=== PATIENT | female | born 1985 | race American Indian/Alaskan Native ===

== ENCOUNTER 2018-01-15 17:16 | Inpatient (IN) | payer OTHER ==
[2018-01-15] MEDS ORDERED: NACL 0.9% 1000 ML 1,000 ML IV ONE (20:19)
[2018-01-15 20:35] LABS: Basophils % (Auto) 0.2 % (0.0-1.8); Eosinophils % (Auto) 0.1 % (0.0-4.3); Lymphocytes # (Auto) 0.5 K/mm3 (1.2-5.4); Lymphocytes % (Auto) 7.3 % (13.4-35.0); Mean Corpuscular HGB Conc 36 % (30-34); Mean Corpuscular Hemoglobin 31 pg (28-32); Mean Corpuscular Volume 86 fl (79-97); Monocytes # (Auto) 0.6 K/mm3 (0.0-0.8); Monocytes % (Auto) 10.2 % (0.0-7.3); Platelet Count 182 K/mm3 (140-440); Red Blood Count 3.61 M/mm3 (3.65-5.03); Red Cell Distribution Width 14.3 % (13.2-15.2)
[2018-01-15 21:11] LABS: Alanine Aminotransferase 8 units/L (7-56); Albumin 4.3 g/dL (3.9-5); BUN/Creatinine Ratio 18; Blood Urea Nitrogen 7 mg/dL (7-17); Calcium 8.9 mg/dL (8.4-10.2); Hemolysis Index 8
[2018-01-15 21:19] LABS: Bilirubin,Urine NEG (Negative); Blood,Urine MOD (Negative); Color,Urine Yellow (Yellow); Mucus,Urine 2+ /HPF; Urobilinogen,Urine < 2.0 mg/dL (<2.0)
[2018-01-15 21:21] LABS: WBC,Urine > 182.0 /HPF (0.0-6.0)
[2018-01-15] MEDS ORDERED: TYLENOL PO ONE (21:23)
--- NOTE | 2018-01-15 23:32 | Ultrasound Report ---
FINAL REPORT PROCEDURE: US OB TRANSVAGINAL TECHNIQUE: Real-time transvaginal sonography of the uterus, placenta, amniotic fluid, adnexa, and fetus was performed with image documentation. Measurements were obtained to determine age/size. M-mode Doppler was used to document heartbeat. CPT 10663 HISTORY: ab pain, preg COMPARISON: No prior studies are available for comparison. FINDINGS: CRL: 29.8mm, which corresponds to a gestational age of: 9weeks, 6 days. Yolk Sac: Normal. Embryonic Cardiac Activity: 183 beats per minute Gestational Sac: Normal. A subchorionic hypoechoic lesion is noted measuring 2.6 x 1.6 x 1.1 centimeters. Right Ovary: Measures 2.7 x 2.8 x 2.3 centimeters with normal echotexture. Left Ovary: Measures 3.8 x 2.5 x 2.1 centimeters containing a 1.8 centimeters cystic lesion most likely representing corpus luteal cyst. Estimated delivery date: 08/14/2018 IMPRESSION: 1. Single living intrauterine gestation at approximately 9 weeks and 6 days 2. EDC by US 08/14/2018 Subchorionic hemorrhage measuring 2.6 x 1.6 x 1.1 centimeters..
--- NOTE | 2018-01-15 23:32 | Ultrasound Report ---
FINAL REPORT PROCEDURE: US OB < = 14 WEEKS FETUS TECHNIQUE: Real-time transabdominal sonography of the uterus, placenta, amniotic fluid, adnexa, and fetus was performed with image documentation. Measurements were obtained to determine age/size. M-mode Doppler was used to document heartbeat. CPT 88722 HISTORY: ab pain, preg COMPARISON: No prior studies are available for comparison. FINDINGS: CRL: 29.8mm, which corresponds to a gestational age of: 9weeks, 6 days. Yolk Sac: Normal. Embryonic Cardiac Activity: 183 beats per minute Gestational Sac: Normal. A subchorionic hypoechoic lesion is noted measuring 2.6 x 1.6 x 1.1 centimeters. Right Ovary: Measures 2.7 x 2.8 x 2.3 centimeters with normal echotexture. Left Ovary: Measures 3.8 x 2.5 x 2.1 centimeters containing a 1.8 centimeters cystic lesion most likely representing corpus luteal cyst. Estimated delivery date: 08/14/2018 IMPRESSION: 1. Single living intrauterine gestation at approximately 9 weeks and 6 days 2. EDC by US 08/14/2018 Subchorionic hemorrhage measuring 2.6 x 1.6 x 1.1 centimeters..
--- NOTE | 2018-01-15 23:41 | Emergency Department Report ---
HPI - General Chief Complaint: Abdominal Pain Time Seen by Provider: 01/15/18 21:23 - HPI HPI: The patient is a 32-year-old female , unknown EGA, presents for evaluation of abdominal pain. The patient reports one week of lower abdominal pain, cramping in quality, moderate in severity, radiating to the left flank, and associated with dysuria. She says that she has missed her menstrual period recently. The patient denies fever, Trauma to the abdomen, chills, night sweats , diarrhea, blood in the stool, dark tarry stool, vaginal bleeding, genital discharge, inability to pass flatus. ED Past Medical Hx - Past Medical History Previous Medical History?: No - Surgical History Past Surgical History?: No - Social History Smoking Status: Never Smoker ED Review of Systems ROS: Stated complaint: VOMITE/NAUSEA Other details as noted in HPI Constitutional: denies: fever ENT: denies: throat or neck pain Respiratory: denies: cough, shortness of breath Cardiovascular: denies: chest pain Endocrine: denies unexplained weight loss or gain Gastrointestinal: reports abdominal pain, nausea Genitourinary: reports dysuria Musculoskeletal: denies: leg swelling Skin: denies: rash Neurological: denies: headache Hematological/Lymphatic: denies: easy bleeding or easy bruising Psych: denies sadness or hopelessness Physical Exam - Physical Exam Vital Signs: Vital Signs 01/15/18 01/15/18 01/15/18 17:55 21:16 21:20 Temperature 100 F H 99 F Pulse Rate 99 H Respiratory 16 Rate Blood Pressure 129/75 117/67 O2 Sat by Pulse 100 100 Oximetry 01/15/18 21:53 Temperature Pulse Rate Respiratory 16 Rate Blood Pressure O2 Sat by Pulse Oximetry Physical Exam: General: well-nourished, well-developed, no acute distress Head: Normocephalic, atraumatic Eyes: normal sclera ENT: Mucous membranes are pink and moist Neck: trachea midline, neck supple, No neck stiffness, no cervical adenopathy Respiratory: Breath sounds equal bilaterally, no wheezing, rales, or rhonchi Cardio: S1 and S2 present, no murmurs, rubs, gallops, capillary refill is brisk Abdomen: Normoactive bowel sounds, soft abdomen, suprapubic tenderness to palpation present, no rigidity, no guarding or rebound tenderness Chest WALL/Back: No tenderness to palpation of the chest wall, no CVA tenderness with percussion Musc: No pitting edema Skin: No rash Neuro: no facial drooping, normal speech Psych: Normal affect ED Course Vital Signs 01/15/18 01/15/18 01/15/18 17:55 21:16 21:20 Temperature 100 F H 99 F Pulse Rate 99 H Respiratory 16 Rate Blood Pressure 129/75 117/67 O2 Sat by Pulse 100 100 Oximetry 01/15/18 21:53 Temperature Pulse Rate Respiratory 16 Rate Blood Pressure O2 Sat by Pulse Oximetry ED Medical Decision Making - Lab Data Result diagrams: 01/15/18 20:26 01/15/18 20:26 - Medical Decision Making The patient was seen and examined by myself. The patient is placed on a tipping machine operator automatic and continuous pulse ox. On initial evaluation, the patient was found to be in no distress, with elevated temperature of 100 Fahrenheit. Evaluation orders are placed. IV access is established and the patient is given 1 L normal saline fluid bolus and Zofran for nausea, and a tablet of Tylenol for her pain and elevated temperature. Lab results revealed sniffly elevated urinalysis WBC, with positive leukocyte esterase, consistent with acute urinary tract infection. As the patient is found to have urinary tract infection with left CVA tenderness, findings are concerning for acute pyelonephritis. The patient is given IV Rocephin and will be admitted for complicated upper urinary tract infection. The on-call hospitalist service was contacted. They agreed to admit the patient for further treatment and close monitoring. The ED admit order was placed. The patient was admitted in guarded condition. Critical care attestation.: If time is entered above; I have spent that time in minutes in the direct care of this critically ill patient, excluding procedure time. ED Disposition Clinical Impression: Acute pyelonephritis in first trimester, antepartum, Abdominal pain during Disposition: OP ADMIT IP TO THIS HOSP Is pt being admited?: Yes Does the pt Need Aspirin: Yes Condition: Stable Instructions: Abdominal Pain (ED) Referrals: PRIMARY CARE, [Primary Care Provider] - 3-5 Days Time of Disposition: 23:48
[2018-01-15] MEDS ORDERED: ROCEPHIN/NS 1 GM/50 ML 1 GM/50 ML BAG IV ONE (23:44)
[2018-01-15] MEDS ORDERED: NACL 0.9% 1000 ML IV ONE (23:49)
[2018-01-16] MEDS ORDERED: ZOFRAN ONE (00:55)
[2018-01-16] MEDS ORDERED: NACL 0.9% 1000 ML 1,000 ML IV ONE (00:59)
[2018-01-16] MEDS ORDERED: SODIUM CHLORIDE FLUSH SYRINGE 10 ML IV PRN (01:15)
[2018-01-16] MEDS ORDERED: ZOFRAN IV PRN (01:15)
--- NOTE | 2018-01-16 01:18 | History and Physical Report ---
History of Present Illness Date of examination: 01/16/18 History of present illness: Amaya member at bedside interpreting. Is a 32-year-old woman with no medical problems comes emergency room with complaints of left lower back pain and abdominal pain for one week. The pain has been intermittent but now has become constant over the last 2 days, described as a dull pain, intensity 6-10, no radiation, candidate for exacerbating or relieving factors. Admits to nausea and vomiting yesterday, fever, chills, dysuria and frequency Review of systems Constitutional: no weight loss Ears, eyes, nose, mouth and throat: no nasal congestion, no nasal discharge, no sinus pressure, no vision change, no red eye. Neck: No neck pain or rigidity. Cardiovascular: no chest pain, palpitations Respiratory: no cough, shortness of breath Gastrointestinal: no hematochezia Genitourinary : + frequency , no hematuria Musculoskeletal: no joint swelling or muscle ache Integumentary: no rash, no pruritis Neurological: no parathesias, no numbness, no focal weakness Endocrine: no cold or heat intolerance, no polyuria or polydipsia Hematologic/Lymphatic: no easy bruising, no easy bleeding, no gland swelling Allergic/Immunologic: no urticaria, no angioedema. PAST MEDICAL HISTORY: None PAST SURGICAL HISTORY: None SOCIAL HISTORY: No alcohol, no drugs, tobacco FAMILY HISTORY: Hypertension Medications and Allergies Allergies Allergy/AdvReac Type Severity Reaction Status Date / Time No Known Allergies Allergy Verified 01/15/18 18:00 Active Meds: Active Medications Sodium Chloride (Nacl 0.9% 1000 Ml) 1,000 mls @ 999 mls/hr IV BOLUS ONE Stop: 01/16/18 01:59 Exam - Physical Exam Narrative exam: Gen. appearance: Patient lying in bed, no apparent distress HEENT: Normocephalic, atraumatic, pupils equally round and reactive to light, extraocular movement intact, and no sclericterus,. No JVD or thyromegaly or nodule,neck supple, no carotid bruit ,mucous membranes moist, no exudate or erythema Heart: S1, S2, regular rate and rhythm Lungs: Clear bilaterally, breathing comfortable Abdomen: Positive bowel sounds, non-tender, nondistended, no organomegaly Extremity:no edema cyanosis, clubbing Skin: no rash, dry, warm Neuro: Oriented 3, cranial nerves II-12 intact, speech is fluent, motor and sensory intact - Constitutional Vitals: Temp Pulse Resp BP Pulse Ox 98.1 F 88 16 102/62 100 01/15/18 23:26 01/15/18 23:26 01/15/18 21:53 01/15/18 23:18 01/15/18 23:18 Results - Labs CBC & Chem 7: 01/15/18 20:26 01/15/18 20:26 Labs: Abnormal lab results 01/15/18 01/15/18 01/15/18 Range/Units 20:26 20:26 20:50 RBC 3.61 L (3.65-5.03) M/mm3 MCHC 36 H (30-34) % Lymph % (Auto) 7.3 L (13.4-35.0) % [place] % (Auto) 10.2 H (0.0-7.3) % Lymph # 0.5 L (1.2-5.4) K/mm3 Seg Neutrophils % 82.2 H (40.0-70.0) % Sodium 133 L (137-145) mmol/L Chloride 94.8 L (98-107) mmol/L Creatinine 0.4 L (0.7-1.2) mg/dL Glucose 114 H (65-100) mg/dL HCG, Quant (0-4) mIU/mL Urine WBC (Auto) > 182.0 H (0.0-6.0) /HPF 01/15/18 Range/Units 20:50 RBC (3.65-5.03) M/mm3 MCHC (30-34) % Lymph % (Auto) (13.4-35.0) % [place] % (Auto) (0.0-7.3) % Lymph # (1.2-5.4) K/mm3 Seg Neutrophils % (40.0-70.0) % Sodium (137-145) mmol/L Chloride (98-107) mmol/L Creatinine (0.7-1.2) mg/dL Glucose (65-100) mg/dL HCG, Quant 22538 H (0-4) mIU/mL Urine WBC (Auto) (0.0-6.0) /HPF Assessment and Plan Transvaginal ultrasound reviewed Assessment Acute pyelonephritis Abdominal pain Plan Admit to medicine Start IV Rocephin, follow cultures materials planner consult start antiemetics, DVT prophalaxis
[2018-01-16] MEDS ORDERED: NACL 0.9% 1000 ML 1,000 ML ONE (03:07)
[2018-01-16] MEDS: NACL 0.9% 1000 ML 1,000 ML IV SCH (03:10)
[2018-01-16 04:21] LABS: Basophils % (Auto) 0.2 % (0.0-1.8); Eosinophils % (Auto) 0.1 % (0.0-4.3); Hematocrit 31.1 % (30.3-42.9); Hemoglobin 10.6 gm/dl (10.1-14.3); Lymphocytes # (Auto) 0.5 K/mm3 (1.2-5.4); Lymphocytes % (Auto) 9.8 % (13.4-35.0); Mean Corpuscular HGB Conc 34 % (30-34); Mean Corpuscular Hemoglobin 30 pg (28-32); Mean Corpuscular Volume 86 fl (79-97); Monocytes # (Auto) 0.5 K/mm3 (0.0-0.8); Monocytes % (Auto) 10.5 % (0.0-7.3); Platelet Count 159 K/mm3 (140-440); Red Blood Count 3.59 M/mm3 (3.65-5.03); Red Cell Distribution Width 14.3 % (13.2-15.2)
[2018-01-16] MEDS: TYLENOL PO PRN ×2 (04:29→17:46)
[2018-01-16 04:34] LABS: BUN/Creatinine Ratio 15; Blood Urea Nitrogen 6 mg/dL (7-17); Calcium 8.5 mg/dL (8.4-10.2); Hemolysis Index 2
--- NOTE | 2018-01-16 06:50 | Consultation ---
History of Present Illness Consult date: 01/16/18 Reason for consult: early problem History of present illness: This is a 32-year-old female with a IUP at 10wga admitted for acute pyelonephritis. She has not received any care for this . She denies vaginal bleeding and no further vomiting. She does experience ptyalism. 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: denies: chlamydia, gonorrhea, hepatitis B, hepatitis C, herpes, HIV , syphilis, trichomonas - Obstetrical History Expected Date of Delivery: 08/14/18 Actual Gestation: 10 Week(s) 0 Day(s) : 4 Para: 2 Hx # Term Pregnancies: 2 Spontaneous Abortions: 1 Number of Living Children: 2 (svdx2) Medications and Allergies Allergies Allergy/AdvReac Type Severity Reaction Status Date / Time No Known Allergies Allergy Verified 01/15/18 18:00 Home Medications Medication Instructions Recorded Confirmed Last Taken Type No Known Home Medications [No 01/16/18 01/16/18 Unknown History Reported Home Medications] Active Meds: Active Medications Acetaminophen (Tylenol) 650 mg PO Q4H PRN PRN Reason: Pain MILD(1-3)/Fever >100.5/GEORGE Last Admin: 01/16/18 04:29 Dose: 650 mg Enoxaparin Sodium (Lovenox) 40 mg SUB-Q QDAY@1000 PHOEBE Sodium Chloride (Nacl 0.9% 1000 Ml) 1,000 mls @ 125 mls/hr IV DIRECT PHOEBE Last Admin: 01/16/18 03:10 Dose: 125 mls/hr Ondansetron HCl (Zofran) 4 mg IV Q4H PRN PRN Reason: Nausea And Vomiting Sodium Chloride (Sodium Chloride Flush Syringe 10 Ml) 10 ml IV BID PHOEBE Sodium Chloride (Sodium Chloride Flush Syringe 10 Ml) 10 ml IV PRN PRN PRN Reason: LINE FLUSH Review of Systems All systems: negative - Vital Signs Vital signs: Vital Signs Temp Pulse Resp BP Pulse Ox 100 F H 99 H 16 129/75 100 01/15/18 17:55 01/15/18 17:55 01/15/18 17:55 01/15/18 17:55 01/15/18 17:55 Temp Pulse Resp BP Pulse Ox 99.1 F 89 18 98/48 98 01/16/18 05:43 01/16/18 05:43 01/16/18 05:43 01/16/18 05:43 01/16/18 05:43 Results Result Diagrams: 01/16/18 03:00 01/16/18 03:00 Abnormal lab results 01/15/18 01/15/18 01/15/18 Range/Units 20:26 20:26 20:50 RBC 3.61 L (3.65-5.03) M/mm3 MCHC 36 H (30-34) % Lymph % (Auto) 7.3 L (13.4-35.0) % Jay % (Auto) 10.2 H (0.0-7.3) % Lymph # 0.5 L (1.2-5.4) K/mm3 Seg Neutrophils % 82.2 H (40.0-70.0) % Sodium 133 L (137-145) mmol/L Chloride 94.8 L (98-107) mmol/L Carbon Dioxide (22-30) mmol/L BUN (7-17) mg/dL Creatinine 0.4 L (0.7-1.2) mg/dL Glucose 114 H (65-100) mg/dL HCG, Quant (0-4) mIU/mL Urine WBC (Auto) > 182.0 H (0.0-6.0) /HPF 01/15/18 01/16/18 01/16/18 Range/Units 20:50 03:00 03:00 RBC 3.59 L (3.65-5.03) M/mm3 MCHC (30-34) % Lymph % (Auto) 9.8 L (13.4-35.0) % Jay % (Auto) 10.5 H (0.0-7.3) % Lymph # 0.5 L (1.2-5.4) K/mm3 Seg Neutrophils % 79.4 H (40.0-70.0) % Sodium 135 L (137-145) mmol/L Chloride 97.5 L (98-107) mmol/L Carbon Dioxide 21 L (22-30) mmol/L BUN 6 L (7-17) mg/dL Creatinine 0.4 L (0.7-1.2) mg/dL Glucose (65-100) mg/dL HCG, Quant 69214 H (0-4) mIU/mL Urine WBC (Auto) (0.0-6.0) /HPF All other labs normal. Assessment and Plan - Patient Problems (1) Acute pyelonephritis in first trimester, antepartum Current Visit: Yes Status: Acute Plan to address problem: Would continue Ceftriaxone until able to tolerate oral, at that time consider cephalexin based on susceptibilities especially during the first trimester. She will need gas engine operator generators low dose suppression therapy for the remainder of the . She was encouraged to seek care as soon as possible. (2) Nausea and vomiting during prior to 22 weeks gestation Current Visit: Yes Status: Acute Plan to address problem: Continue Zofran but may add Phenergan or Reglan as well as may Ranitidine. Would hold steroids if possible. (3) Ptyalism Current Visit: Yes Status: Acute Plan to address problem: She should spit frequently instead on holding saliva in her mouth, this exacerbates nausea and vomiting. Encourage chewing gum, using lozenges and drinking water frequently. Will follow with you
[2018-01-16] MEDS ORDERED: LOVENOX SUB-Q SCH (10:00)
[2018-01-16] MEDS: LOVENOX SUB-Q SCH (12:20)
[2018-01-16] MEDS: SODIUM CHLORIDE FLUSH SYRINGE 10 ML IV SCH ×2 (12:21→22:51)
--- NOTE | 2018-01-16 12:32 | Event Note ---
Date: 01/16/18 Patient is 1st trimester with left pyelonephritis. Continue Ceftriaxone. Gynecology following
[2018-01-16] MEDS: ROCEPHIN/NS 1 GM/50 ML 1 GM/50 ML BAG IV SCH (22:50)
--- NOTE | 2018-01-17 08:40 | Progress Note ---
Assessment and Plan Assessment and plan: left pyelonephritis. Continue Ceftriaxone iv daily. Urine cultures Zofran iv prn for pain. 9 weeks 6days Gynecology following Full code status. History Interval history: Left flank pain nausea and vomiting Hospitalist Physical - Physical exam Narrative exam: Gen:Not in acute distress, lying in bed HEENT:Normocephalic atraumatic Neck: Supple, no JVD Lungs:clear to auscultation bilaterally, no rhonchi, no wheeze Heart:S1 and S2 reg, no murmurs, rubs or gallop Abd: Soft, mild left flank tenderness,, non distended, normal bowel sounds Ext: No edema, clubbing or cyanosis Neuro:Awake,alert,oriented x 3, no focal neurological signs Psych:normal mood - Constitutional Vitals: Temp Pulse Resp BP Pulse Ox 98.5 F 89 18 112/64 100 01/17/18 05:27 01/17/18 05:27 01/17/18 05:27 01/17/18 05:27 01/17/18 07:41 Results - Labs CBC & Chem 7: 01/16/18 03:00 01/16/18 03:00 Labs: Laboratory Last Values WBC 4.8 K/mm3 (4.5-11.0) 01/16/18 03:00 RBC 3.59 M/mm3 (3.65-5.03) L 01/16/18 03:00 Hgb 10.6 gm/dl (10.1-14.3) 01/16/18 03:00 Hct 31.1 % (30.3-42.9) 01/16/18 03:00 MCV 86 fl (79-97) 01/16/18 03:00 MCH 30 pg (28-32) 01/16/18 03:00 MCHC 34 % (30-34) 01/16/18 03:00 RDW 14.3 % (13.2-15.2) 01/16/18 03:00 Plt Count 159 K/mm3 (140-440) 01/16/18 03:00 Lymph % (Auto) 9.8 % (13.4-35.0) L 01/16/18 03:00 [place] % (Auto) 10.5 % (0.0-7.3) H 01/16/18 03:00 Eos % (Auto) 0.1 % (0.0-4.3) 01/16/18 03:00 Baso % (Auto) 0.2 % (0.0-1.8) 01/16/18 03:00 Lymph # 0.5 K/mm3 (1.2-5.4) L 01/16/18 03:00 [place] # 0.5 K/mm3 (0.0-0.8) 01/16/18 03:00 Eos # 0.0 K/mm3 (0.0-0.4) 01/16/18 03:00 Baso # 0.0 K/mm3 (0.0-0.1) 01/16/18 03:00 Seg Neutrophils % 79.4 % (40.0-70.0) H 01/16/18 03:00 Seg Neutrophils # 3.8 K/mm3 (1.8-7.7) 01/16/18 03:00 Sodium 135 mmol/L (137-145) L 01/16/18 03:00 Potassium 3.6 mmol/L (3.6-5.0) 01/16/18 03:00 Chloride 97.5 mmol/L (98-107) L 01/16/18 03:00 Carbon Dioxide 21 mmol/L (22-30) L 01/16/18 03:00 Anion Gap 20 mmol/L 01/16/18 03:00 BUN 6 mg/dL (7-17) L 01/16/18 03:00 Creatinine 0.4 mg/dL (0.7-1.2) L 01/16/18 03:00 Estimated GFR > 60 ml/min 01/16/18 03:00 BUN/Creatinine Ratio 15 % 01/16/18 03:00 Glucose 82 mg/dL (65-100) 01/16/18 03:00 Lactic Acid 0.80 mmol/L (0.7-2.0) 01/15/18 23:56 Calcium 8.5 mg/dL (8.4-10.2) 01/16/18 03:00 Total Bilirubin 0.90 mg/dL (0.1-1.2) 01/15/18 20:26 AST 12 units/L (5-40) 01/15/18 20:26 ALT 8 units/L (7-56) 01/15/18 20:26 Alkaline Phosphatase 56 units/L (35-129) 01/15/18 20:26 Total Protein 7.8 g/dL (6.3-8.2) 01/15/18 20:26 Albumin 4.3 g/dL (3.9-5) 01/15/18 20:26 Albumin/Globulin Ratio 1.2 % 01/15/18 20:26 HCG, Qual Positive (Negative) 01/15/18 20:26 HCG, Quant 44646 mIU/mL (0-4) H 01/15/18 20:50 Urine Color Yellow (Yellow) 01/15/18 20:50 Urine Turbidity Cloudy (Clear) 01/15/18 20:50 Urine pH 5.0 (5.0-7.0) 01/15/18 20:50 Ur Specific [place] 1.015 (1.003-1.030) 01/15/18 20:50 Urine Protein 100 mg/dl mg/dL (Negative) 01/15/18 20:50 Urine Glucose (UA) Neg mg/dL (Negative) 01/15/18 20:50 Urine Ketones 80 mg/dL (Negative) 01/15/18 20:50 Urine Blood Mod (Negative) 01/15/18 20:50 Urine Nitrite Pos (Negative) 01/15/18 20:50 Urine Bilirubin Neg (Negative) 01/15/18 20:50 Urine Urobilinogen < 2.0 mg/dL (<2.0) 01/15/18 20:50 Ur Leukocyte Esterase Lg (Negative) 01/15/18 20:50 Urine WBC (Auto) > 182.0 /HPF (0.0-6.0) H 01/15/18 20:50 Urine RBC (Auto) 38.0 /HPF (0.0-6.0) 01/15/18 20:50 U Epithel Cells (Auto) 9.0 /HPF (0-13.0) 01/15/18 20:50 Urine WBC Clumps 2+ /HPF 01/15/18 20:50 Urine Mucus 2+ /HPF 01/15/18 20:50 Urine Yeast (Budding) 2+ /HPF 01/15/18 20:50 Blood Type O POSITIVE 01/15/18 21:36 Ord Rhogam Gestat Weeks Rh pos WEEKS 01/15/18 21:36
[2018-01-17] MEDS: NACL 0.9% 1000 ML 1,000 ML IV SCH ×2 (10:30→18:13)
[2018-01-17] MEDS: SODIUM CHLORIDE FLUSH SYRINGE 10 ML IV SCH ×2 (10:31→22:54)
[2018-01-17] MEDS: LOVENOX SUB-Q SCH (10:32)
[2018-01-17] MEDS: ROCEPHIN/NS 1 GM/50 ML 1 GM/50 ML BAG IV SCH (22:53)
[2018-01-18] MEDS: TYLENOL PO PRN (01:53)
[2018-01-18] MEDS: NACL 0.9% 1000 ML 1,000 ML IV SCH (01:55)
--- NOTE | 2018-01-18 09:45 | Event Note ---
Date: 01/18/18 Urine culture and sensitivities resulted, Keflex should be fine for 14days then one tab qd for the remainder of the . She will also need PNV, she should f/u with us or her OB of choice in 7days.
[2018-01-18] MEDS: SODIUM CHLORIDE FLUSH SYRINGE 10 ML IV SCH (10:13)
--- NOTE | 2018-01-18 10:24 | Discharge Summary ---
Providers - Providers Date of Admission: 01/16/18 01:15 Date of discharge: 01/18/18 Attending physician: MAGALYS HAYS 01/16/18 01:15 Consult to Physician [CONS] Routine Comment: Consulting Provider: NOE SCHAFFER Physician Instructions: Reason For Exam: abd pain, Primary care physician: CUSTOMER EXPERT Hospitalization Condition: Good Disposition: DC-01 TO HOME OR SELFCARE Core Measure Documentation - Palliative Care Palliative Care/ Comfort Measures: Not Applicable - Core Measures Any of the following diagnoses?: none Exam - Constitutional Vitals: Temp Pulse Resp BP Pulse Ox 99.1 F 66 18 111/61 100 01/18/18 05:59 01/18/18 05:59 01/18/18 05:59 01/18/18 05:59 01/18/18 05:59 Plan Activity: advance as tolerated Diet: regular Additional Instructions: 1.Follow up with Dr. Schaffer in 1 week. 2.Follow up with PCP or [facility] in 1 week Follow up with: NOE SCHAFFER MD [Staff Physician] - 7 Days PRIMARY CAREMD [Primary Care Provider] - 3-5 Days
[2018-01-18 12:28] VITALS: BP 108/70
[2018-01-18] MEDS: LOVENOX SUB-Q SCH (14:29)
== END 2018-01-18 14:00 | disposition home or self-care (01) | DRG 781 ==
LOC: ED 17:16 → 3A 01-16 01:15
PROVIDERS: ADMIT Internal Medicine; ATTEND Internal Medicine
DX: O23.01 Infections of kidney in pregnancy, first trimester (principal); O99.611 Diseases of the digestive system complicating pregnancy, first trimester; K11.7 Disturbances of salivary secretion; Z82.49 Family history of ischemic heart disease and other diseases of the circulatory system; Z3A.10 10 weeks gestation of pregnancy
CPT/HCPCS: 36415; 76801; 76817; 80048; 80053; 81001; 82140; 84702; 84703; 85025; 86900; 86901; 87040; 87076; 87086; 87186; J0696; J1650; J2405; J7030